=== PATIENT | male | born 2000 | race Caucasian/White ===

== ENCOUNTER 2021-03-26 05:11 | Emergency (ER) | payer BC, OTHER ==
[2021-03-26 07:25] LABS: Appearance,Urine Clear (Clear); Bilirubin,Urine Negative (Negative); Blood,Urine Negative (Negative); Color,Urine Yellow; Glucose,Urine (UA) Negative (Negative); Ketones,Urine 2+ (Negative); Leukocyte Esterase,Urine Negative (Negative); Nitrite,Urine Negative (Negative); Protein,Urine Trace (Negative); Specific Gravity,Urine 1.024 (1.001-1.035); Urobilinogen,Urine <2.0 mg/dL (<2.0)
[2021-03-26] MEDS ORDERED: SODIUM CHLORIDE 0.9% 1,000 ML IV ONE (07:50)
--- NOTE | 2021-03-26 08:46 | US ---
EXAMINATION TYPE: US scrotum with doppler. Grayscale and color Doppler Duplex imaging performed of rain cardona scrotum. DATE OF EXAM: 03/26/2021 COMPARISON: NONE CLINICAL HISTORY: pain. EC patient with scrotal pain x 6 days; patient denies trauma to scrotal sac o r heavy lifting, pushing or pulling EXAM MEASUREMENTS: TESTICLES: Right Testicle: 4.4 x 2.2 x 1.8 cm Left Testicle: 4.4 x 2.5 x 1.5 cm EPIDIDYMIS HEAD: Right Epididymis: 0.5 x 0.7 x 0.8cm Left Epididymis: 1.2 x 1.3 x 1.0 cm PW and Color flow Doppler was performed to assess for testicular vascularity; good bilateral color fl ow and waveforms are seen. There is no evidence of testicular torsion. Presence of hydroceles: no Presence of varicoceles: yes, noted lateral superior to Left testicle as multiple veins are tortuous , dilated at 4.2mm in neutral position ( normal = less than 2.5mm at rest) Right epididymal head cyst seen = 0.4 x 0.5 x 0.5cm and Left epididymal head cyst is also imaged = 0 .4 x 0.4 x 0.3cm. IMPRESSION: 1. No testicular torsion or testicular mass. 2. Left-sided varicocele. 3. Small bilateral epididymal cysts
[2021-03-26 09:01] LABS: Basophils # (A) 0.1 k/uL (0-0.2); Basophils % (A) 1 %; Eosinophils % (A) 1 %; HGB 16.5 gm/dL (13.0-17.5); Lymphocytes # (A) 1.4 k/uL (1.0-4.8); Lymphocytes % (A) 27 %; MCH 28.7 pg (25.0-35.0); MCHC 33.6 g/dL (31.0-37.0); MCV 85.3 fL (80.0-100.0); Mean Platelet Volume 7.3; Monocytes # (A) 0.4 k/uL (0-1.0); Monocytes % (A) 7 %; Neutrophils # (A) 3.1 k/uL (1.3-7.7); Neutrophils % (A) 60 %; Platelet Count 266 k/uL (150-450); RBC 5.75 m/uL (4.30-5.90); RDW 12.4 % (11.5-15.5); WBC 5.2 k/uL (3.8-10.6)
[2021-03-26 09:13] LABS: African American GFR (CKD) >90 (>60 ml/min/1.73 sqM); Anion Gap 13 mmol/L; Blood Urea Nitrogen 12 mg/dL (9-20); Calcium 9.2 mg/dL (8.4-10.2); Carbon Dioxide 24 mmol/L (22-30); Chloride 100 mmol/L (98-107); Glucose 98 mg/dL (74-99); Non-African American GFR(CKD) >90 (>60 ml/min/1.73 sqM); Potassium 3.7 mmol/L (3.5-5.1); Sodium 137 mmol/L (137-145)
[2021-03-26] MEDS ORDERED: cefTRIAXone 1,000 MG VIAL (IM USE) IM STA (09:21)
[2021-03-26] MEDS ORDERED: AZITHROMYCIN 250 MG TAB PO STA (09:21)
[2021-03-26] MEDS ORDERED: cefTRIAXone IN SWFI 1,000 MG/10 ML SYRINGE IVP STA (09:22)
--- NOTE | 2021-03-26 09:23 | ED ---
General Adult HPI - General Chief complaint: Urogenital Stated complaint: Male Time Seen by Provider: 03/26/21 06:32 Source: patient, family, RN notes reviewed Mode of arrival: ambulatory Limitations: no limitations - History of Present Illness Initial comments: 21-year-old male presents emergency Department with chief complaint of dysuria, dark urine, scrotal discomfort. Patient states is recently started. Denies any trauma denies abdominal pain no fevers or chills a prior infections no rectal pain no constipation. - Related Data Previous Rx's Medication Instructions Recorded Famotidine [Pepcid] 20 mg PO BID #10 tablet 05/23/15 diphenhydrAMINE [Benadryl] 50 mg PO HS PRN #5 capsule 05/23/15 Sulfamethox-Tmp 800-160Mg [Bactrim 1 each PO Q12HR #14 tab 03/26/21 Ds] Allergies Allergy/AdvReac Type Severity Reaction Status Date / Time amoxicillin Allergy Rash/Hives Verified 03/26/21 05:18 prednisone Allergy Rash/Hives Verified 03/26/21 05:18 Review of Systems ROS Statement: Those systems with pertinent positive or pertinent negative responses have been documented in the HPI. ROS Other: All systems not noted in ROS Statement are negative. Past Medical History Past Medical History: No Reported History History of Any Multi-Drug Resistant Organisms: None Reported Past Surgical History: No Surgical Hx Reported Past Psychological History: Anxiety Smoking Status: Never smoker Past Alcohol Use History: None Reported Past Drug Use History: None Reported General Exam Limitations: no limitations General appearance: alert, in no apparent distress Head exam: Present: atraumatic, normocephalic, normal inspection Eye exam: Present: normal appearance, PERRL, EOMI. Absent: scleral icterus, conjunctival injection, periorbital swelling ENT exam: Present: normal exam, normal oropharynx, mucous membranes moist Neck exam: Present: normal inspection. Absent: tenderness, meningismus, lymphadenopathy Respiratory exam: Present: normal lung sounds bilaterally. Absent: respiratory distress, wheezes, rales, rhonchi, stridor Cardiovascular Exam: Present: regular rate, normal rhythm, normal heart sounds. Absent: systolic murmur, diastolic murmur, rubs, gallop, clicks GI/Abdominal exam: Present: soft, normal bowel sounds. Absent: distended, tenderness, guarding, rebound, rigid exam: Present: testicular tenderness. Absent: scrotal swelling Course Vital Signs 03/26/21 03/26/21 05:15 09:52 Temperature 98.7 F 98.3 F Pulse Rate 104 H 89 Respiratory 22 16 Rate Blood Pressure 142/82 127/80 O2 Sat by Pulse 96 99 Oximetry Medical Decision Making - Medical Decision Making Ultrasound urinalysis is OH as reviewed patient does have epididymal cysts I do have concerns is he symptomatic for early epididymitis will be given treatment, given antibiotics Tylenol Motrin increase fluids and return for any worsening change symptoms. - Lab Data Result diagrams: 03/26/21 08:53 03/26/21 08:53 Lab Results 03/26/21 03/26/21 03/26/21 Range/Units 07:10 08:53 08:53 WBC 5.2 (3.8-10.6) k/uL RBC 5.75 (4.30-5.90) m/uL Hgb 16.5 (13.0-17.5) gm/dL Hct 49.0 (39.0-53.0) % MCV 85.3 (80.0-100.0) fL MCH 28.7 (25.0-35.0) pg MCHC 33.6 (31.0-37.0) g/dL RDW 12.4 (11.5-15.5) % Plt Count 266 (150-450) k/uL MPV 7.3 Neutrophils % 60 % Lymphocytes % 27 % Monocytes % 7 % Eosinophils % 1 % Basophils % 1 % Neutrophils # 3.1 (1.3-7.7) k/uL Lymphocytes # 1.4 (1.0-4.8) k/uL Monocytes # 0.4 (0-1.0) k/uL Eosinophils # 0.0 (0-0.7) k/uL Basophils # 0.1 (0-0.2) k/uL Sodium 137 (137-145) mmol/L Potassium 3.7 (3.5-5.1) mmol/L Chloride 100 (98-107) mmol/L Carbon Dioxide 24 (22-30) mmol/L Anion Gap 13 mmol/L BUN 12 (9-20) mg/dL Creatinine 0.88 (0.66-1.25) mg/dL Est GFR (CKD-EPI)AfAm >90 (>60 ml/min/1.73 sqM) Est GFR (CKD-EPI)NonAf >90 (>60 ml/min/1.73 sqM) Glucose 98 (74-99) mg/dL Calcium 9.2 (8.4-10.2) mg/dL Urine Color Yellow Urine Appearance Clear (Clear) Urine pH 6.0 (5.0-8.0) Ur Specific [place] 1.024 (1.001-1.035) Urine Protein Trace H (Negative) Urine Glucose (UA) Negative (Negative) Urine Ketones 2+ H (Negative) Urine Blood Negative (Negative) Urine Nitrite Negative (Negative) Urine Bilirubin Negative (Negative) Urine Urobilinogen <2.0 (<2.0) mg/dL Ur Leukocyte Esterase Negative (Negative) Disposition Clinical Impression: Dehydration, Epididymitis Disposition: HOME SELF-CARE Condition: Stable Instructions (If sedation given, give patient instructions): Epididymitis (ED) Additional Instructions: Please return to the Emergency Department if symptoms worsen or any other concerns. Prescriptions: Sulfamethox-Tmp 800-160Mg [Bactrim Ds] 1 each PO Q12HR #14 tab Is patient prescribed a controlled substance at d/c from ED?: No Referrals: Delio Day DO [Primary Care Provider] - 1-2 days Time of Disposition: 09:23
[2021-03-26 09:53] VITALS: BP 127/80; PULSE 89; RESP 16; TEMP 98.3
== END 2021-03-26 09:56 | disposition home or self-care (01) ==
LOC: EC 05:11
DX: N50.9 Disorder of male genital organs, unspecified (principal); N45.1 Epididymitis; E86.0 Dehydration; Z88.0 Allergy status to penicillin; F41.9 Anxiety disorder, unspecified
CPT/HCPCS: 99284; 96374; 96361; 36415; 80048; 85025; 81003; 93975; 76870; J0696